=== PATIENT | male | born 1960 | race Caucasian/White ===

== ENCOUNTER 2019-12-04 12:08 | Inpatient (IN) ==
[2019-12-04] MEDS ORDERED: ACETAMINOPHEN 500 MG TAB PO STA (13:19)
[2019-12-04] MEDS ORDERED: methylPREDNISolone 125 MG/2 ML VIAL IV STA (13:35)
[2019-12-04] MEDS ORDERED: ACETAMINOPHEN 325 MG TAB PO STA (13:35)
[2019-12-04] MEDS ORDERED: LEVALBUTEROL HCL 1.25 MG/3 ML NEB NEB STA ×2 (13:35→15:47)
--- NOTE | 2019-12-04 13:43 | XRay Report ---
XR chest 1V portable CLINICAL HISTORY: 59 years-old Male presenting with SOB. TECHNIQUE: Portable upright AP view of the chest was obtained. COMPARISON: 06/05/2019. FINDINGS: Cardiomediastinal silhouette normal. Lungs and pleural spaces clear. Degenerative changes of the thor acic spine. Upper abdomen normal. IMPRESSION: 1. No acute cardiopulmonary disease. ACT 112: Negative or not required by law. Electronically signed by: Garfield Merida M.D. 12/04/2019 1:42 PM
[2019-12-04] MEDS ORDERED: SODIUM CHLORIDE 0.9% 1000ML 2,000 ML IV SCH (13:45)
[2019-12-04 14:28] LABS: Basophils # (auto) 0.02 K/uL (0-0.2); Basophils % (auto) 0.3 %; Hematocrit (blood only) 36.1 % (42-52); Hemoglobin 12.3 g/dL (14.0-18.0); Immature Granulocytes # (auto) 0.01 K/uL (0.00-0.02); Immature Granulocytes % (auto) 0.1 %; Lymphocytes # (auto) 1.06 K/uL (1.2-3.4); Lymphocytes % (auto) 14.1 %; Mean Corpuscular Hemoglobin 32.4 pg (25-34); Mean Corpuscular Hgb Conc 34.1 g/dL (32-36); Mean Platelet Volume 8.6 fL (7.4-10.4); Monocytes # (auto) 0.29 K/uL (0.11-0.59); Monocytes % (auto) 3.9 %; Neutrophils # (auto) 6.14 K/uL (1.4-6.5); Neutrophils % (auto) 81.6 %; Platelet Count 222 K/uL (130-400); White Blood Count 7.52 K/uL (4.8-10.8)
[2019-12-04 14:45] LABS: Alanine Aminotransferase 18 U/L (12-78); Albumin Level 3.6 gm/dl (3.4-5.0); Aspartate Aminotransferase 10 U/L (15-37); BUN Creatinine Ratio 9.9 (10-20); Blood Urea Nitrogen 13 mg/dl (7-18); Carbon Dioxide 24 mmol/L (21-32); Chloride 104 mmol/L (98-107); Creatinine Clr Calc Pharmacy 64.2 ml/min; Est GFR (African American) 65.1; Est GFR (Non-African American) 56.2; Glucose 164 mg/dl (70-99); Potassium 4.4 mmol/L (3.5-5.1); Sodium 136 mmol/L (136-145)
[2019-12-04 14:46] LABS: Partial Thromboplastin Ratio 0.9; Partial Thromboplastin Time 24.2 Seconds (21.0-31.0)
[2019-12-04 14:56] LABS: Albumin Globulin Ratio 1.3 (0.9-2); Alkaline Phosphatase 77 U/L (45-117); Bilirubin,Total 0.5 mg/dl (0.2-1); Globulin 2.7 gm/dl (2.5-4.0); Thyroid Stimulating Hormone 0.376 uIu/ml (0.300-4.500); Total Protein 6.3 gm/dl (6.4-8.2); Troponin I < 0.015 ng/ml (0-0.045)
[2019-12-04 14:59] LABS: Influenza B virus by PCR Neg for Influ B (Neg)
[2019-12-04] MEDS ORDERED: OSELTAMIVIR PHOSPHATE 75 MG CAP PO STA (15:10)
[2019-12-04] MEDS ORDERED: SODIUM CHLORIDE 0.9% 1000ML 1,000 ML IV ONE (15:47)
--- NOTE | 2019-12-04 16:43 | Electrocardiogram Report ---
Test Reason : Blood Pressure : / mmHG Vent. Rate : 127 BPM Atrial Rate : 127 BPM P-R Int : 130 ms QRS Dur : 130 ms QT Int : 336 ms P-R-T Axes : 060 086 052 degrees QTc Int : 488 ms Sinus tachycardia Right bundle branch block Abnormal ECG When compared with ECG of 05-JUN-2019 13:43, No significant change was found Confirmed by Martin Anne ([id number]) on 12/04/2019 4:42:35 PM Referred By: Socrates Cash Confirmed By:Martin Anne
--- NOTE | 2019-12-04 17:49 | History & Physical Report ---
Date of Service December 04, 2019 Assessment & Plan (1) Acute respiratory failure: Admit to PCU on telemetry, Vital signs every 4 hours, Replenish fluids and electrolytes, Follow-up with CBC and CMP, Repeat lactic acid. First lactic acid elevated to 3.5, Started ceftriaxone empirically in the ER 2 g IV every 24 hours and doxycycline 100 mg IV twice daily for possible pneumonia. Blood cultures pending Sputum cultures pending Continue home meds inhalers Umeclidinium/Vilanterol in 62.51 puff inhalation every morning, Ipratropium albuterol 1 puff every 6 hours as needed, Xopenex/ipratropium every 6 hours nebs Solu-Medrol 40 mg IV every 12 hours and taper down DVT prophylaxis Heparin 5000 units subcu every 12 hours. Full code Present on Admission?: Yes (2) Sepsis associated hypotension: As discussed above Present on Admission?: Yes (3) Influenza: Started oseltamivir 75 mg twice daily for 5 days Present on Admission?: Yes (4) Acute dehydration: Replenish fluids IV Present on Admission?: Yes (5) Hypertension: Hold antihypertensives while patient is hypotensive. Hold lisinopril 5 mg p.o. every morning (6) COPD (chronic obstructive pulmonary disease): As discussed above Present on Admission?: Yes (7) Hyperlipidemia: Lipid panel pending continue simvastatin 20 mg p.o. nightly. Present on Admission?: Yes History of Present Illness Chief Complaint: Shortness of breath Primary Care Provider: Nimesh Levy, DO The patient is a 59 years old male with past medical history of COPD who presents to the emergency room with severe shortness of breath, dyspnea started yesterday. The patient states that his symptoms are not relieved nor exacerbated by anything specific. Patient reports feeling very tired. Patient reports having a fever, chills, cough nonproductive, headache and body aches. Patient denies abdominal pain nausea vomiting hematuria hematemesis or syncope. Patient is smoker for many years and smokes half a pack per day. The labs are reviewed: WBC 7.52, hemoglobin 12.3, hematocrit 36.1, platelets 222, PT 10, INR 1, APTT 24.2 sodium 136, potassium 4.4, chloride 104, carbon dioxide 24, anion gap 9, BUN 13, creatinine 1.36, GFR 56.2, glucose 164, lactate 3.5, repeated lactate pending, calcium 9, total bilirubin 0.5, AST 10, ALT 18, alkaline phosphatase 77, troponin 0.015, total protein 6.3, albumin 3.6, globulin 2.7, TSH is 0.376. Patient is positive for influenza A. Influenza B is negative. Chest x-ray show cardiomediastinal silhouette normal. Lungs and pleural spaces clear. Degenerative changes of the thoracic spine. Upper abdomen is normal. No acute cardiopulmonary disease. Decision was made to admit patient to PCU on telemetry for acute respiratory failure, influenza A, and generalized malaise with body aches. Allergies Allergy/AdvReac Type Severity Reaction Status Date / Time No Known Allergies Allergy Unknown Verified 12/04/19 15:27 Home Medications Home Medications Medication Instructions Recorded Confirmed Type albuterol sulfate [ProAir HFA] 2 puff INHALATION DIRECTED PRN 07/12/18 12/04/19 History aspirin [Aspir-81] 81 mg PO QAM 07/12/18 12/04/19 History glyburide 5 mg PO BID 07/12/18 12/04/19 History liraglutide [Victoza 2-[place]] 1 dose SUBCUT QAM 07/12/18 12/04/19 History lisinopril 5 mg PO QAM 07/12/18 12/04/19 History metformin 1,000 mg PO BID 07/12/18 12/04/19 History simvastatin 20 mg PO HS 07/12/18 12/04/19 History tiotropium-olodaterol [Stiolto 2 puff INHALATION QAM 07/12/18 12/04/19 History Respimat] ipratropium-albuterol [Combivent 1 puff INHALATION Q6H PRN 06/05/19 12/04/19 History Respimat] Past Med/Surg History Medical History COPD (chronic obstructive pulmonary disease) Surgical History No pertinent past surgical history Family History Other No pertinent family history in first degree relatives Social History Preferred Language: [place] Communication Ability: Effective Beliefs That Will Affect Care: None Current Living Situation: Spouse Other Information That Helps Us Care for You: No Feels Safe at Home: Yes Smoking Status: Current every day smoker Tobacco Type: cigarettes and e- cigarettes ; Do You Dip or Chew Tobacco: No ; Second Hand Exposure: No ; Tobacco Cessation Education Requested by Patient: No Hx Alcohol Use: Yes Alcohol type: beer Review of Systems Review of Systems: All systems reviewed & are unremarkable except as noted in HPI & below Physical Exam Constitutional: WD/WN, vitals as above well developed, + ill appearing and + obese Eyes: PERRL, conjunctivae normal, anicteric sclerae ENMT: external ear and nose normal, oropharynx normal Nose: + nasal discharge Runny nose, erythematosus pharynx, appears very tired. Neck: trachea midline, no thyromegaly Respiratory: Auscultation: + wheezes Cardiovascular: RRR, no murmur, no edema Gastrointestinal (Abdomen): normal bowel sounds, soft, nontender, no hepatosplenomegaly Musculoskeletal: no cyanosis or clubbing, extremities motor strength 5/5 Skin: no rashes, warm and dry Neurologic: patellar DTR's 2+ bilat, sensation intact Psychiatric: A+Ox3, euthymic affect Lymphatic: no cervical or axillary lymphadenopathy Results & Data Vital Signs (Past 12 Hours) Vital Signs Temp Pulse Pulse Resp BP BP Pulse Ox 12/04/19 17:31 122 H 20 96 12/04/19 17:30 122 H 23 125/64 98 12/04/19 17:15 117 H 22 96 12/04/19 17:02 116 H 26 H 97 12/04/19 17:01 117 H 117 H 26 H 101/61 101/61 97 12/04/19 16:45 120 H 29 H 96 12/04/19 16:34 53 L 19 168/64 H 99 12/04/19 16:30 120 H 21 112/77 98 12/04/19 16:26 120 H 20 97 12/04/19 16:20 121 H 19 110/58 L 96 12/04/19 16:15 124 H 16 12/04/19 16:01 128 H 26 H 12/04/19 16:00 125 H 23 90/58 L 12/04/19 15:45 131 H 15 12/04/19 15:31 128 H 32 H 94 12/04/19 15:30 132 H 31 H 110/62 90 12/04/19 15:15 136 H 23 93 12/04/19 15:01 135 H 29 H 96 12/04/19 15:00 132 H 25 H 109/67 95 12/04/19 14:45 132 H 22 92 12/04/19 14:41 129 H 23 112/64 95 12/04/19 14:37 38.1 C H 130 H 24 112/64 88 L 12/04/19 14:30 133 H 30 H 94 12/04/19 14:22 90 12/04/19 14:15 128 H 21 12/04/19 14:01 132 H 26 H 91 12/04/19 13:57 130 H 33 H 93 12/04/19 13:54 131 H 30 H 105/56 L 95 12/04/19 13:53 129 H 26 H 93 12/04/19 12:37 38.1 C H 144 H 22 104/63 93 Code Status & VTE Plan Code Status Full code VTE Prophylaxis Plan VTE Prophylaxis will be ordered: Yes PG Care Time/CCT Total # of Minutes Spent Total Time Spent with Patient: Total time spent is greater than 50% in coordination of care (as documented) at patient's floor/unit and/or counseling patient: Coding Level of Care Code 82883 Initial Inpt Care Lvl 3 Diagnoses Acute respiratory failure J96.00 Sepsis associated hypotension A41.9; I95.9 Influenza J11.1 Acute dehydration E86.0 Hypertension I10 COPD (chronic obstructive pulmonary disease) J44.9 Hyperlipidemia E78.5
[2019-12-04] MEDS ORDERED: MAGNESIUM HYDROXIDE SUSP 30 ML UDC PO PRN (18:21)
[2019-12-04] MEDS ORDERED: ACETAMINOPHEN 325 MG TAB PO PRN (18:21)
[2019-12-04] MEDS ORDERED: NON-FORMULARY MEDICATION (Albuterol Sulfate 2 PUFFS) INH PRN (18:21)
[2019-12-04] MEDS ORDERED: ALUMINUM/MAGNESIUM SUSP 30 ML UDC PO PRN (18:21)
[2019-12-04] MEDS ORDERED: SODIUM CHLORIDE 0.9% 1000ML 1,000 ML IV SCH (18:21)
[2019-12-04] MEDS ORDERED: POLYETHYLENE (MIRALAX) 17 GM PACK PO PRN (18:21)
[2019-12-04] MEDS ORDERED: IPRATROPIUM BROMIDE/ALBUTEROL respimat INH INH PRN (18:21)
[2019-12-04] MEDS ORDERED: ONDANSETRON INJ 2 MG/ML 2 ML VIAL IV PRN (18:21)
[2019-12-04] MEDS ORDERED: XOPENEX/ATROVENT 0.63mg/0.5MG NEB COMBO NEB SCH (19:00)
[2019-12-04] MEDS ORDERED: cefTRIAXone SODIUM 2,000 MG in DEXTROSE 5% 50 ML IV SCH (19:00)
[2019-12-04] MEDS: DOXYCYCLINE HYCLATE 100 MG in DEXTROSE 5% 100 ML IV SCH (20:00)
--- NOTE | 2019-12-04 20:06 | Emergency Department Note ---
Entered by Celeste Rosas acting as a scribe for History of Present Illness General Chief complaint: Respiratory Problems Stated complaint: SORE [id number]-HARD TO BREATH Time Seen by Provider: 12/04/19 13:20 Source: patient History of Present Illness Provider complaint: Shortness of Breath/Dyspnea Onset (ago): day(s) 1 Location: chest Maximum Pain Intensity: 6 Relieved By: + none Exacerbated By: + none Associated symptoms: + cough, + fever/chills, + headaches and + other (Body aches); no nausea/vomiting The patient is a 59 year old male w/ PMHx of COPD who presents to the ED w/ CC of shortness of breath/dyspnea beginning yesterday. The patient states that his symptoms are not relieved nor exacerbated by anything specific. The patient report experiencing a cough, fever/chills, headache, and body aches. The patient denies experiencing any nausea/vomiting. The patient also denies any recent travels or contact with sick persons. The patient notes that he has COPD and smokes. Home Medications Home Medications Medication Instructions Recorded Confirmed Type albuterol sulfate [ProAir HFA] 2 puff INHALATION DIRECTED PRN 07/12/18 12/04/19 History aspirin [Aspir-81] 81 mg PO QAM 07/12/18 12/04/19 History glyburide 5 mg PO BID 07/12/18 12/04/19 History liraglutide [Victoza 2-[place]] 1 dose SUBCUT QAM 07/12/18 12/04/19 History lisinopril 5 mg PO QAM 07/12/18 12/04/19 History metformin 1,000 mg PO BID 07/12/18 12/04/19 History simvastatin 20 mg PO HS 07/12/18 12/04/19 History tiotropium-olodaterol [Stiolto 2 puff INHALATION QAM 07/12/18 12/04/19 History Respimat] ipratropium-albuterol [Combivent 1 puff INHALATION Q6H PRN 06/05/19 12/04/19 History Respimat] Allergies Allergy/AdvReac Type Severity Reaction Status Date / Time No Known Allergies Allergy Unknown Verified 12/04/19 15:27 Past Med/Surg History Medical History COPD (chronic obstructive pulmonary disease) Surgical History No pertinent past surgical history Family History Other No pertinent family history in first degree relatives Social History Preferred Language: Norwegian Communication Ability: Effective Beliefs That Will Affect Care: None Current Living Situation: Spouse Other Information That Helps Us Care for You: No Feels Safe at Home: Yes Smoking Status: Current every day smoker Tobacco Type: cigarettes and e- cigarettes ; Do You Dip or Chew Tobacco: No ; Second Hand Exposure: No ; Tobacco Cessation Education Requested by Patient: No Hx Alcohol Use: Yes Alcohol type: beer Review of Systems See HPI for pertinent positives & negatives. and A total of 10 systems reviewed and were otherwise negative Physical Exam Vital Signs Vital Signs - 24 hr 12/04/19 12:37 12/04/19 13:53 12/04/19 13:54 Temperature 38.1 C H Temperature Source Oral Pulse Rate 144 H 131 H Pulse Rate [Right Finger] 129 H Pulse Rate from SpO2 Sensor 131 H Pulse Rhythm [Right Finger] Pulse Strength [Right Finger] Respiratory Rate 22 26 H 30 H Respiratory Effort / Characteristics Non-Labored Spontaneous Respiratory Depth Normal Respiratory Pattern Blood Pressure 104/63 105/56 L Blood Pressure [Left Arm] Blood Pressure Mean 76 64 Blood Pressure Mean [Left Arm] Blood Pressure Position Sitting Blood Pressure Position [Left Arm] Pulse Oximetry 93 93 95 Oxygen Delivery Method Room Air Room Air Oxygen Flow Rate Sepsis Recent Fever Within 48 Hours Yes Sepsis New/Unexplained Change in Mental Status No Sepsis Action Taken by Nursing Physician Notified 12/04/19 13:57 12/04/19 14:01 12/04/19 14:15 Temperature Temperature Source Pulse Rate 130 H 132 H 128 H Pulse Rate [Right Finger] Pulse Rate from SpO2 Sensor 129 H 132 H Pulse Rhythm [Right Finger] Pulse Strength [Right Finger] Respiratory Rate 33 H 26 H 21 Respiratory Effort / Characteristics Respiratory Depth Respiratory Pattern Blood Pressure Blood Pressure [Left Arm] Blood Pressure Mean Blood Pressure Mean [Left Arm] Blood Pressure Position Blood Pressure Position [Left Arm] Pulse Oximetry 93 91 Oxygen Delivery Method Oxygen Flow Rate Sepsis Recent Fever Within 48 Hours Sepsis New/Unexplained Change in Mental Status Sepsis Action Taken by Nursing 12/04/19 14:22 12/04/19 14:30 12/04/19 14:37 Temperature 38.1 C H Temperature Source Oral Pulse Rate 133 H Pulse Rate [Right Finger] 130 H Pulse Rate from SpO2 Sensor 133 H Pulse Rhythm [Right Finger] Regular Pulse Strength [Right Finger] Normal Respiratory Rate 30 H 24 Respiratory Effort / Characteristics Non-Labored Spontaneous Respiratory Depth Normal Respiratory Pattern Regular Blood Pressure Blood Pressure [Left Arm] 112/64 Blood Pressure Mean Blood Pressure Mean [Left Arm] 80 Blood Pressure Position Blood Pressure Position [Left Arm] Sitting Pulse Oximetry 90 94 88 L Oxygen Delivery Method Room Air Room Air Oxygen Flow Rate Sepsis Recent Fever Within 48 Hours Sepsis New/Unexplained Change in Mental Status Sepsis Action Taken by Nursing 12/04/19 14:41 12/04/19 14:45 12/04/19 15:00 Temperature Temperature Source Pulse Rate 129 H 132 H 132 H Pulse Rate [Right Finger] Pulse Rate from SpO2 Sensor 130 H 130 H 132 H Pulse Rhythm [Right Finger] Pulse Strength [Right Finger] Respiratory Rate 23 22 25 H Respiratory Effort / Characteristics Respiratory Depth Respiratory Pattern Blood Pressure 112/64 109/67 Blood Pressure [Left Arm] Blood Pressure Mean 84 74 Blood Pressure Mean [Left Arm] Blood Pressure Position Blood Pressure Position [Left Arm] Pulse Oximetry 95 92 95 Oxygen Delivery Method Oxygen Flow Rate Sepsis Recent Fever Within 48 Hours Sepsis New/Unexplained Change in Mental Status Sepsis Action Taken by Nursing 12/04/19 15:01 12/04/19 15:15 12/04/19 15:30 Temperature Temperature Source Pulse Rate 135 H 136 H 132 H Pulse Rate [Right Finger] Pulse Rate from SpO2 Sensor 134 H 137 H 132 H Pulse Rhythm [Right Finger] Pulse Strength [Right Finger] Respiratory Rate 29 H 23 31 H Respiratory Effort / Characteristics Respiratory Depth Respiratory Pattern Blood Pressure 110/62 Blood Pressure [Left Arm] Blood Pressure Mean 72 Blood Pressure Mean [Left Arm] Blood Pressure Position Blood Pressure Position [Left Arm] Pulse Oximetry 96 93 90 Oxygen Delivery Method Oxygen Flow Rate Sepsis Recent Fever Within 48 Hours Sepsis New/Unexplained Change in Mental Status Sepsis Action Taken by Nursing 12/04/19 15:31 12/04/19 15:45 12/04/19 16:00 Temperature Temperature Source Pulse Rate 128 H 131 H 125 H Pulse Rate [Right Finger] Pulse Rate from SpO2 Sensor 129 H Pulse Rhythm [Right Finger] Pulse Strength [Right Finger] Respiratory Rate 32 H 15 23 Respiratory Effort / Characteristics Respiratory Depth Respiratory Pattern Blood Pressure 90/58 L Blood Pressure [Left Arm] Blood Pressure Mean 74 Blood Pressure Mean [Left Arm] Blood Pressure Position Blood Pressure Position [Left Arm] Pulse Oximetry 94 Oxygen Delivery Method Oxygen Flow Rate Sepsis Recent Fever Within 48 Hours Sepsis New/Unexplained Change in Mental Status Sepsis Action Taken by Nursing 12/04/19 16:01 12/04/19 16:15 12/04/19 16:20 Temperature Temperature Source Pulse Rate 128 H 124 H 121 H Pulse Rate [Right Finger] Pulse Rate from SpO2 Sensor 121 H Pulse Rhythm [Right Finger] Pulse Strength [Right Finger] Respiratory Rate 26 H 16 19 Respiratory Effort / Characteristics Respiratory Depth Respiratory Pattern Blood Pressure 110/58 L Blood Pressure [Left Arm] Blood Pressure Mean 65 Blood Pressure Mean [Left Arm] Blood Pressure Position Blood Pressure Position [Left Arm] Pulse Oximetry 96 Oxygen Delivery Method Oxygen Flow Rate Sepsis Recent Fever Within 48 Hours Sepsis New/Unexplained Change in Mental Status Sepsis Action Taken by Nursing 12/04/19 16:26 12/04/19 16:30 12/04/19 16:34 Temperature Temperature Source Pulse Rate 120 H 53 L Pulse Rate [Right Finger] 120 H Pulse Rate from SpO2 Sensor 120 H 55 L Pulse Rhythm [Right Finger] Pulse Strength [Right Finger] Respiratory Rate 20 21 19 Respiratory Effort / Characteristics Spontaneous Respiratory Depth Respiratory Pattern Blood Pressure 112/77 168/64 H Blood Pressure [Left Arm] Blood Pressure Mean 83 105 Blood Pressure Mean [Left Arm] Blood Pressure Position Blood Pressure Position [Left Arm] Pulse Oximetry 97 98 99 Oxygen Delivery Method Oxymask Oxygen Flow Rate 4.5 Sepsis Recent Fever Within 48 Hours Sepsis New/Unexplained Change in Mental Status Sepsis Action Taken by Nursing 12/04/19 16:45 12/04/19 17:01 12/04/19 17:02 Temperature Temperature Source Pulse Rate 120 H 117 H 116 H Pulse Rate [Right Finger] 117 H Pulse Rate from SpO2 Sensor 121 H 118 H 117 H Pulse Rhythm [Right Finger] Pulse Strength [Right Finger] Respiratory Rate 29 H 26 H 26 H Respiratory Effort / Characteristics Respiratory Depth Respiratory Pattern Blood Pressure 101/61 Blood Pressure [Left Arm] 101/61 Blood Pressure Mean 71 Blood Pressure Mean [Left Arm] 74 Blood Pressure Position Blood Pressure Position [Left Arm] Pulse Oximetry 96 97 97 Oxygen Delivery Method Oxygen Flow Rate Sepsis Recent Fever Within 48 Hours Sepsis New/Unexplained Change in Mental Status Sepsis Action Taken by Nursing 12/04/19 17:15 12/04/19 17:30 12/04/19 17:31 Temperature 37.2 C Temperature Source Oral Pulse Rate 117 H 122 H 122 H Pulse Rate [Right Finger] Pulse Rate from SpO2 Sensor 117 H 122 H 123 H Pulse Rhythm [Right Finger] Pulse Strength [Right Finger] Respiratory Rate 22 23 20 Respiratory Effort / Characteristics Respiratory Depth Respiratory Pattern Blood Pressure 125/64 Blood Pressure [Left Arm] Blood Pressure Mean 79 Blood Pressure Mean [Left Arm] Blood Pressure Position Blood Pressure Position [Left Arm] Pulse Oximetry 96 98 96 Oxygen Delivery Method Oxygen Flow Rate Sepsis Recent Fever Within 48 Hours Sepsis New/Unexplained Change in Mental Status Sepsis Action Taken by Nursing 12/04/19 17:45 Temperature Temperature Source Pulse Rate 113 H Pulse Rate [Right Finger] Pulse Rate from SpO2 Sensor Pulse Rhythm [Right Finger] Pulse Strength [Right Finger] Respiratory Rate 18 Respiratory Effort / Characteristics Respiratory Depth Respiratory Pattern Blood Pressure Blood Pressure [Left Arm] Blood Pressure Mean Blood Pressure Mean [Left Arm] Blood Pressure Position Blood Pressure Position [Left Arm] Pulse Oximetry Oxygen Delivery Method Oxygen Flow Rate Sepsis Recent Fever Within 48 Hours Sepsis New/Unexplained Change in Mental Status Sepsis Action Taken by Nursing GENERAL: Well nourished, NAD, non-toxic. EYE EXAM: Normal conjunctiva. PERRL, no anisocoria and EOM's grossly intact w/o pain. OROPHARYNX: Dry mucous membranes. Grossly normal dentition. NECK: Supple, no nuchal rigidity, no adenopathy, non-tender. No signs of meningismus. LUNGS: Scant wheezes left chest. Normal chest wall mechanics. HEART: Tachycardic rate and regular rhythm, no MRG. ABDOMEN: Abdomen soft, non-tender, normo-active bowel sounds, no masses, no rebound or guarding. BACK: No CVA TTP. SKIN: No rashes and no bruising. UPPER EXTREMITIES: Upper extremities are grossly normal. LOWER EXTREMITIES: No pitting edema. No calf pain. NEURO EXAM: A&O x3, cranial nerves II-XII grossly intact, normal speech, moves all 4 extremities on command w/o issue. Course Course 1330: Past medical records reviewed. The patient was evaluated in room B05. A complete history and physical exam was performed. 1531: I reevaluated the patient and he is requiring oxygen at this time. 1547: I spoke with Dr. Kate- Hospitalist about the patient's case and she will accept the patient for further evaluation. Administered Medications Doxycycline Hyclate 100 mg/ (Dextrose) 110 mls @ 50 mls/hr IV Q12H MARCIO Stop: 12/11/19 19:59 Last Admin: 12/04/19 20:00 Dose: 50 mls/hr Documented by: [id number] Ceftriaxone Sodium 2,000 mg/ (Dextrose) 70 mls @ 100 mls/hr IV Q24H MARCIO; Protocol Stop: 12/11/19 18:59 Last Admin: 12/04/19 19:55 Dose: 100 mls/hr Documented by: [id number] Sodium Chloride (Nss 1000ml) 1,000 mls @ 80 mls/hr IV .[id number] MARCIO Stop: 01/03/20 18:20 Last Admin: 12/04/19 19:55 Dose: 80 mls/hr Documented by: [id number] Discontinued Medications Acetaminophen (Tylenol) 1,000 mg PO NOW STA Stop: 12/04/19 13:20 Last Admin: 12/04/19 14:27 Dose: 1,000 mg Documented by: [id number] Acetaminophen (Tylenol) 650 mg PO NOW STA Stop: 12/04/19 13:36 Last Admin: 12/04/19 14:27 Dose: Not Given Documented by: [id number] Sodium Chloride (Nss 1000ml) 2,000 mls @ 999 mls/hr IV .Q2H1M MARCIO Stop: 12/04/19 15:45 Last Infusion: 12/04/19 16:25 Dose: 0 mls/hr Documented by: [id number] Admin: 12/04/19 14:26 Dose: 999 mls/hr Documented by: [id number] Sodium Chloride (Nss 1000ml) 1,000 mls @ 999 mls/hr IV .Q1H1M ONE Stop: 12/04/19 16:47 Last Infusion: 12/04/19 17:36 Dose: 0 mls/hr Documented by: [id number] Admin: 12/04/19 16:21 Dose: 999 mls/hr Documented by: [id number] Levalbuterol HCl (Xopenex 1.25mg/3ml Neb) 1.25 mg NEB NOW STA Stop: 12/04/19 13:36 Last Admin: 12/04/19 13:53 Dose: 1.25 mg Documented by: [id number] Levalbuterol HCl (Xopenex 1.25mg/3ml Neb) 1.25 mg NEB NOW STA Stop: 12/04/19 15:48 Last Admin: 12/04/19 16:26 Dose: 1.25 mg Documented by: [id number] Methylprednisolone (Solumedrol) 60 mg IV NOW STA Stop: 12/04/19 13:36 Last Admin: 12/04/19 14:26 Dose: 60 mg Documented by: [id number] Oseltamivir Phosphate (Tamiflu) 75 mg PO NOW STA; Protocol Stop: 12/04/19 15:11 Last Admin: 12/04/19 15:17 Dose: 75 mg Documented by: [id number] Medical Decision Making Differential Diagnosis Differential diagnosis: Etiologies such as viral syndrome, otitis, pharyngitis, pneumonia, influenza, meningitis, urinary tract infection, septic arthritis, soft tissue infectious process, intra-abdominal process, sepsis, bacteremia, as well as others were entertained. Medical Records Attestation: I reviewed the patient's medical records. Home Medications Current Medication List: was personally reviewed by me Laboratory Data Attestation: I reviewed the patient's lab results. Result diagrams: 12/04/19 14:14 12/04/19 14:14 Lab Results 12/04/19 12/04/19 12/04/19 Range/Units 14:00 14:14 14:14 WBC 7.52 (4.8-10.8) K/uL RBC 3.80 L (4.7-6.1) M/uL Hgb 12.3 L (14.0-18.0) g/dL Hct 36.1 L (42-52) % MCV 95.0 (80-100) fL MCH 32.4 (25-34) pg MCHC 34.1 (32-36) g/dL RDW Std Deviation 48.0 H (36.4-46.3) fL RDW Coeff of Gavin 14.0 (11.5-14.5) % Plt Count 222 (130-400) K/uL MPV 8.6 (7.4-10.4) fL Immature Gran % (Auto) 0.1 % Neut % (Auto) 81.6 % Lymph % (Auto) 14.1 % [place] % (Auto) 3.9 % Eos % (Auto) 0.0 % Baso % (Auto) 0.3 % Immature Gran # (Auto) 0.01 (0.00-0.02) K/uL Neut # (Auto) 6.14 (1.4-6.5) K/uL Lymph # (Auto) 1.06 L (1.2-3.4) K/uL [place] # (Auto) 0.29 (0.11-0.59) K/uL Eos # (Auto) 0.00 (0-0.5) K/uL Baso # (Auto) 0.02 (0-0.2) K/uL PT 10.0 (9.0-12.0) Seconds INR 1.0 (0.9-1.1) APTT 24.2 (21.0-31.0) Seconds PTT Ratio 0.9 Sodium (136-145) mmol/L Potassium (3.5-5.1) mmol/L Chloride (98-107) mmol/L Carbon Dioxide (21-32) mmol/L Anion Gap (3-11) BUN (7-18) mg/dl Creatinine (0.6-1.4) mg/dl Est Cr Clr Drug Dosing ml/min Est GFR ( Amer) Est GFR (Non-Af Amer) BUN/Creatinine Ratio (10-20) Glucose (70-99) mg/dl Lactate (0.4-2.0) mmol/L Calcium (8.5-10.1) mg/dl Total Bilirubin (0.2-1) mg/dl AST (15-37) U/L ALT (12-78) U/L Alkaline Phosphatase (45-117) U/L Troponin I (0-0.045) ng/ml Total Protein (6.4-8.2) gm/dl Albumin (3.4-5.0) gm/dl Globulin (2.5-4.0) gm/dl Albumin/Globulin Ratio (0.9-2) TSH (0.300-4.500) uIu/ml Influenza Type A (PCR) Pos for Influ A A* (Neg) Influenza Type B (PCR) Neg for Influ B (Neg) 03/03/20 03/03/20 Range/Units 14:14 14:14 WBC (4.8-10.8) K/uL RBC (4.7-6.1) M/uL Hgb (14.0-18.0) g/dL Hct (42-52) % MCV (80-100) fL MCH (25-34) pg MCHC (32-36) g/dL RDW Std Deviation (36.4-46.3) fL RDW Coeff of Gavin (11.5-14.5) % Plt Count (130-400) K/uL MPV (7.4-10.4) fL Immature Gran % (Auto) % Neut % (Auto) % Lymph % (Auto) % [place] % (Auto) % Eos % (Auto) % Baso % (Auto) % Immature Gran # (Auto) (0.00-0.02) K/uL Neut # (Auto) (1.4-6.5) K/uL Lymph # (Auto) (1.2-3.4) K/uL [place] # (Auto) (0.11-0.59) K/uL Eos # (Auto) (0-0.5) K/uL Baso # (Auto) (0-0.2) K/uL PT (9.0-12.0) Seconds INR (0.9-1.1) APTT (21.0-31.0) Seconds PTT Ratio Sodium 136 (136-145) mmol/L Potassium 4.4 (3.5-5.1) mmol/L Chloride 104 (98-107) mmol/L Carbon Dioxide 24 (21-32) mmol/L Anion Gap 9.0 (3-11) BUN 13 (7-18) mg/dl Creatinine 1.36 (0.6-1.4) mg/dl Est Cr Clr Drug Dosing 64.2 ml/min Est GFR ( Amer) 65.1 Est GFR (Non-Af Amer) 56.2 BUN/Creatinine Ratio 9.9 L (10-20) Glucose 164 H (70-99) mg/dl Lactate 3.5 H* (0.4-2.0) mmol/L Calcium 9.0 (8.5-10.1) mg/dl Total Bilirubin 0.5 (0.2-1) mg/dl AST 10 L (15-37) U/L ALT 18 (12-78) U/L Alkaline Phosphatase 77 (45-117) U/L Troponin I < 0.015 (0-0.045) ng/ml Total Protein 6.3 L (6.4-8.2) gm/dl Albumin 3.6 (3.4-5.0) gm/dl Globulin 2.7 (2.5-4.0) gm/dl Albumin/Globulin Ratio 1.3 (0.9-2) TSH 0.376 (0.300-4.500) uIu/ml Influenza Type A (PCR) (Neg) Influenza Type B (PCR) (Neg) Imaging Data Radiologist's Impression: Radiology results as stated below per my review and the radiologist's interpretation: XR chest 1V portable CLINICAL HISTORY: 59 years-old Male presenting with SOB. TECHNIQUE: Portable upright AP view of the chest was obtained. COMPARISON: 06/05/2019. FINDINGS: Cardiomediastinal silhouette normal. Lungs and pleural spaces clear. Degenerative changes of the thoracic spine. Upper abdomen normal. IMPRESSION: 1. No acute cardiopulmonary disease. ACT 112: Negative or not required by law. Electronically signed by: Garfield Merida M.D. 12/04/2019 1:42 PM ECG Data Attestation: I personally reviewed and interpreted this ECG as follows: Indication: + SOB/dyspnea Rate (beats per minute): 127 Rhythm: + sinus tachycardia ECG Intervals/blocks: + Right Bundle branch block; no Normal QRS (Wide QRS) ECG ST segments: no ST depression and no ST elevation Comparison ECG Date: from (06/05/19) Change: no significant change Blood Pressure Blood Pressure Findings: Normal blood pressure Blood Pressure Disposition: further management by hospitalist SHAKIRA Narrative The patient is a 59 year old male w/ PMHx of COPD who presents to the ED w/ CC of shortness of breath/dyspnea beginning yesterday. Continuous Cardiac Monitoring: An order was placed for continuous cardiac monit oring. The monitor shows a rate of 127 with sinus tachycardia. Patient was seen and evaluated the bedside. The patient did present with concern for flulike symptoms that began yesterday. The patient does have a known history of COPD and does feel short of breath. The patient did have blood work completed along with a flu swab and chest x-ray. The patient was given Xopenex nebs steroids and fluids. Patient has a normal white counts trace low anemia. The patient does have normal kidney function with an elevated lactic. The patient's flu was positive was given Tamiflu. Chest x-ray appears clear. The patient has not had a complaint of increased sputum production or white count. Will defer antibiotics at this time. Given that the patient does have a mild oxygen requirement with his flulike illness I believe the patient would benefit from further inpatient treatment specially given his elevated lactate. I did speak the on-call hospitalist who agreed to further evaluate treat the patient. Patient was subsequently mated to the medicine service. Impression & Plan Respiratory failure with hypoxia, Influenza, Acute dehydration, SOB (shortness of breath), Elevated lactic acid level Discharge Plan Visit Data *Final* Discharge Date/Time: 12/04/19 18:10 Chief Complaint: Respiratory Problems Stated Complaint: SORE [id number]-[id number]-HARD TO BREATH ED Provider: Socrates Cash Discharge Problem: Respiratory failure with hypoxia, Influenza, Acute dehydration, SOB (shortness of breath), Elevated lactic acid level Patient Disposition: Admitted As Inpatient Discharge Instructions Interventions: ED Discharge Assessment Last Done: 12/04/19 18:10 Discharge Problem: Respiratory failure with hypoxia Qualifiers: Chronicity: unspecified Qualified Code(s): J96.91 - Respiratory failure, unspecified with hypoxia The scribe's documentation has been prepared under my direction and personally reviewed by me in its entirety. I confirm that the note above accurately reflects all work, treatment, procedures, and medical decision making performed by me.
[2019-12-04] MEDS ORDERED: GLUCOSE 10 TABS/TUBE PO PRN (20:30)
[2019-12-04] MEDS ORDERED: GLUCOSE 40% GEL 15 GM TUBE PO PRN (20:30)
[2019-12-04] MEDS ORDERED: CARBOHYDRATES FOR HYPOGLYCEMIA PO PRN (20:30)
[2019-12-04] MEDS ORDERED: DEXTROSE 50% 50 ML SYRINGE IV PRN (20:30)
[2019-12-04] MEDS ORDERED: GLUCAGON FOR INJ 1 MG VIAL SQ PRN (20:30)
[2019-12-04] MEDS: LEVALBUTEROL HCL 0.63 MG/3 ML NEB NEB SCH (20:55)
[2019-12-04] MEDS: IPRATROPIUM BROMIDE NEB SOLN 0.02% 2.5 ML VIAL INH SCH (20:55)
[2019-12-04] MEDS: SIMVASTATIN 20 MG TAB PO SCH (20:56)
[2019-12-04] MEDS: HEPARIN SOD 5,000 UNIT/0.5 ML VIAL SQ SCH (20:56)
[2019-12-04] MEDS ORDERED: INSULIN ASPART 100 UNITS/ML 3 ML PEN SC SCH (21:00)
[2019-12-04] MEDS ORDERED: INSULIN ASPART 100 UNITS/ML 3 ML PEN SC ONE (21:30)
[2019-12-05] MEDS ORDERED: PHARMACY GLYCEMIC MGMT CONSULT PRN (00:56)
[2019-12-05] MEDS: IPRATROPIUM BROMIDE NEB SOLN 0.02% 2.5 ML VIAL INH SCH ×4 (01:08→19:31)
[2019-12-05] MEDS: LEVALBUTEROL HCL 0.63 MG/3 ML NEB NEB SCH ×4 (01:08→19:31)
[2019-12-05] MEDS ORDERED: INSULIN REGULAR 250 UNITS in SODIUM CHLORIDE 0.9% 247.5 ML IV SCH (01:15)
[2019-12-05] MEDS ORDERED: INSULIN HUMAN REGULAR IV BOLUS 5 UNITS in SYRINGE 0 ML IV ONE (01:15)
[2019-12-05] MEDS ORDERED: methylPREDNISolone 40 MG in SYRINGE 0 ML IV SCH (02:00)
[2019-12-05] MEDS: NSS + 20MEQ KCL 20 MEQ/1,000 ML BAG IV SCH ×2 (02:36→13:56)
[2019-12-05] MEDS: OSELTAMIVIR PHOSPHATE 75 MG CAP PO SCH ×2 (05:59→17:50)
[2019-12-05 06:45] LABS: Basophils # (auto) 0.01 K/uL (0-0.2); Basophils % (auto) 0.1 %; Hematocrit (blood only) 36.2 % (42-52); Hemoglobin 12.1 g/dL (14.0-18.0); Immature Granulocytes # (auto) 0.03 K/uL (0.00-0.02); Immature Granulocytes % (auto) 0.4 %; Lymphocytes # (auto) 0.28 K/uL (1.2-3.4); Lymphocytes % (auto) 3.3 %; Mean Corpuscular Hemoglobin 32.4 pg (25-34); Mean Corpuscular Hgb Conc 33.4 g/dL (32-36); Mean Corpuscular Volume 96.8 fL (80-100); Mean Platelet Volume 8.6 fL (7.4-10.4); Monocytes # (auto) 0.59 K/uL (0.11-0.59); Neutrophils # (auto) 7.52 K/uL (1.4-6.5); Neutrophils % (auto) 89.2 %; Platelet Count 249 K/uL (130-400); RDW Coefficient of Variation 14.1 % (11.5-14.5); RDW Standard Deviation 50.2 fL (36.4-46.3); Red Blood Count 3.74 M/uL (4.7-6.1); White Blood Count 8.43 K/uL (4.8-10.8)
[2019-12-05 07:17] LABS: Albumin Level 3.3 gm/dl (3.4-5.0); BUN Creatinine Ratio 14.4 (10-20); Calcium 8.8 mg/dl (8.5-10.1); Est GFR (African American) 71.4; Est GFR (Non-African American) 61.6; Estimated Average Glucose 212 mg/dl; Potassium 4.1 mmol/L (3.5-5.1)
[2019-12-05 07:22] LABS: Bilirubin,Total 0.4 mg/dl (0.2-1); Globulin 3.2 gm/dl (2.5-4.0); Total Protein 6.5 gm/dl (6.4-8.2)
[2019-12-05] MEDS: INSULIN ASPART 100 UNITS/ML 3 ML PEN SC SCH ×4 (07:57→20:51)
[2019-12-05] MEDS: VICTOZA~ORDER AWAITING ACTION SCH ×3 (07:58→23:59)
[2019-12-05] MEDS: ASPIRIN 81 MG ECTAB PO SCH (07:59)
[2019-12-05] MEDS: UMECLIDINIUM/VILANTEROL 62.5/25MCG 7 PUFFS/INHALER INH SCH (07:59)
[2019-12-05] MEDS: NICOTINE 14 MG/24 HR PATCH TD SCH (07:59)
[2019-12-05] MEDS: HEPARIN SOD 5,000 UNIT/0.5 ML VIAL SQ SCH ×2 (08:00→20:50)
[2019-12-05] MEDS: DOXYCYCLINE HYCLATE 100 MG in DEXTROSE 5% 100 ML IV SCH (08:08)
[2019-12-05] MEDS ORDERED: lisinopriL 5 MG TAB PO SCH (09:00)
--- NOTE | 2019-12-05 09:19 | Hospitalist Progress Note ---
Date of Service December 05, 2019 Assessment & Plan (1) Acute respiratory failure: Mr. Valdez Galvin 59 years old male with past medical history of COPD, DM2, significant 40+ pack year smoking history who presented to the emergency room with severe shortness of breath and dyspnea started Tuesday. - Currently appears to be viral pneumonia with acute COPD exacerbation - CXR showed no acute pulmonary disease and Procal negative, doubt bacterial pneumonia - Positive influenza A in ED and started on Tamiflu 75mg BID for 5 days, appears to be in window starting within 48 hours to benefit from treatment. He thinks he received annual influenza vaccine from [place]. - On admission, was started on Doxycycline 100mg IV BID, Rocephin 2gm IV q24h, Solu-Medrol 40mg q12h - Since doubt bacterial pneumonia will discontinue Rocephin, switch Doxycycline to PO since will continue to treat as Acute COPD. Will discontinue Solu-Medrol since he can tolerate PO and switch to Prednisone 40mg PO. - C/w Xopenex negs scheduled since tachycardic. - C/w Anoro 1 puff qAM - C/w Atrovent neb q6h - Currently on room air Code: Full Code DVT ppx: Heparin started on admission FENGI: Heart healthy Dispo: Med/surg tele since tachycardic (2) Influenza: Started oseltamivir 75 mg twice daily for 5 days (3) COPD (chronic obstructive pulmonary disease): As discussed above (4) Sinus tachycardia: Sinus tachycardia on ECG Notes history of tachycardia and this is reflected will all other prior values recorded in [facility] He notes no definitive etiology for this other than this is from "probably from all the smoking" (5) Diabetes mellitus type 2 in nonobese: A1C here of 9.0, he states this is his baseline. On admission, he was started on Regular Insulin 250 units IV and Novolog SS (6) Sepsis associated hypotension: Resolved Lowest BP recorded 90-93/55-58 now normo tensive s/p 3.5L NSS (7) Acute dehydration: Resolved (8) Hypertension: Hold antihypertensives while patient is hypotensive. Hold lisinopril 5 mg p.o. every morning (9) Hyperlipidemia: Lipid panel looks great with a LDL of 45 and a HDL of 72; continue simvastatin 20 mg p.o. nightly. Admission and Anticipated Discharge Date Admission Date: December 04, 2019 Supervising Physician Co-Signing Physician Notes I personally examined the patient and verified all rose points of history and exam, discussed case, and agree with decision making with Dr Rodriguez. Feeling better than before. Pleased with his progress. Vitals noted, in general he is awake and alert pleasant no distress. HEENT normocephalic atraumatic mucous membranes moist. Breathing shows lungs to be diminished throughout but no rales rhonchi or wheezes good effort. He is sitting up eating with no dyspnea. Neuro shows cranial nerves II through XII be grossly intact gross motor and sensory are intact. COPD exacerbation secondary to influenzaimproving. Continue current treatment, hopefully home tomorrow. Stable for medical. Subjective Mr. Galvin notes feeling improved from yesterday. He notes his breathing has improved. He notes no new complaints, and no acute events were reported overnight. He notes starting smoking at age 16 and that he decided to quit yesterday. Physical Exam Constitutional: WD/WN, vitals as above cooperative and comfortable paces around room Eyes: PERRL, conjunctivae normal, anicteric sclerae ENMT: external ear and nose normal, oropharynx normal Neck: normal visual inspection and trachea midline Respiratory: no respiratory distress Auscultation: + diminished lung sounds (Posteriorly improved at apices) Cardiovascular: Rate/Rhythm: regular rhythm and + tachycardic distant heart sounds Gastrointestinal (Abdomen): Percussion/Palpation: abdomen soft; abdomen nontender, no guarding and abdomen not rigid Musculoskeletal: Head/Neck/Chest: normocephalic and head atraumatic Skin: no rashes, warm and dry Neurologic: moves all extremities and awake Psychiatric: A+Ox3, euthymic affect Results & Data ([facility]) Vital Signs (Past 12 Hours) Vital Signs Temp Pulse Pulse Resp BP Pulse Ox 12/05/19 07:30 123 H 12/05/19 07:15 119 H 18 93 12/05/19 07:04 36.6 C 118 H 20 109/64 92 12/05/19 03:07 37.1 C 125 H 16 104/55 L 91 12/05/19 01:29 118 H 22 93 12/05/19 00:00 113 H 12/04/19 23:03 36.7 C 120 H 22 123/71 92 Resident Activity Tracking Resident Involvement: Resident Care Provided Care Provided: Adult Hospital Medicine
[2019-12-05] MEDS ORDERED: INSULIN GLARGINE SOLOSTAR 100 UNITS/ML 3 ML PEN SC ONE ×2 (12:00→12:15)
[2019-12-05] MEDS ORDERED: COUGH DROP (SUGAR FREE) LOZ 24 LOZ/1 BOX BUCCAL ONE (13:11)
--- NOTE | 2019-12-05 14:47 | Pharmacy Report ---
Pharmacy Glycemic Short Note 2 - Date of Service December 05, 2019 - Glycemic Short BSG Results (Last 24 hours): 12/04/19 12/04/19 12/04/19 14:14 21:06 21:09 Glucose 164 H POC Glucose 415 H* 407 H* 12/05/19 12/05/19 12/05/19 00:39 01:47 01:49 Glucose POC Glucose 430 H* 394 H* 390 H* 12/05/19 12/05/19 12/05/19 03:01 03:54 04:56 Glucose POC Glucose 272 H 230 H 215 H 12/05/19 12/05/19 12/05/19 05:55 06:31 07:01 Glucose 201 H POC Glucose 226 H 213 H 12/05/19 12/05/19 12/05/19 07:53 09:10 10:14 Glucose POC Glucose 207 H 212 H 221 H 12/05/19 12/05/19 12/05/19 11:10 12:02 13:06 Glucose POC Glucose 170 H 202 H 194 H 12/05/19 13:55 Glucose POC Glucose 174 H OUTPATIENT ANTIDIABETIC REGIMEN: * glyburide 5 mg PO BID * metformin 1000 mg PO BID * A1c = 9% ASSESSMENT: * Valdez is a 59 yr T2DM male admitted with acute respiratory failure. He was started on antibiotics and IV steroids for pneumonia and COPD exacerbation. * He was given two doses of solu medrol (last dose was 12/04 ~0200) and will start once daily prednisone on 3/5 AM. * Hyperglycemia likely due to infection and high dose steroids on top of baseline uncontrolled DM. * Glycemic control improving on IV insulin infusion. I anticipate significant improvement over the next few hours as IV solu medrol will be wearing off. * Transition to SQ basal + bolus regimen * Basal dosing based on weight/stress 2 * Novolog based on weight/stress 2 (may need to tighten tomorrow) * Add once daily NPH on 3/5 AM to cover prednisone (~0.4 units/kg) PLAN FOR INPATIENT GLYCEMIC CONTROL: * Hold outpatient oral diabetes medications * Basal insulin * Lantus 15 units with lunch, then per scale at HS: * 0 units for BSG < 140 * 8 units for BSG 140-180 * 15 units for BSG > 180 * Bolus insulin * NovoLog per scale ACHS or Q6hrs while NPO * Goal Range: Low 110 mg/dL - High 140 mg/dL * Correction Factor: 25 mg/dL/unit * Nutritional / Prandial insulin per carb ratio of 1 unit per 9 grams CHO consumed PLAN FOR DISCHARGE: * A1c of 9% is above goal * Discharge plan will depend on if patient is discharged on steroids * per discussion with CDE, pt very hesitant to use insulin due to CDL
[2019-12-05] MEDS ORDERED: DC IV INSULIN INFUSION 1 EA DEVI SCH (18:00)
--- NOTE | 2019-12-05 18:39 | Billing Data ---
Date of Service December 05, 2019 Coding Level of Care Code 00954 Subseq Hosp Care Lvl 3
[2019-12-05] MEDS: SIMVASTATIN 20 MG TAB PO SCH (20:49)
[2019-12-05] MEDS: DOXYCYCLINE HYCLATE 100 MG CAP PO SCH (20:49)
[2019-12-05] MEDS ORDERED: INSULIN GLARGINE SOLOSTAR 100 UNITS/ML 3 ML PEN SC SCH (21:00)
[2019-12-06] MEDS: LEVALBUTEROL HCL 0.63 MG/3 ML NEB NEB SCH ×2 (00:19→07:22)
[2019-12-06] MEDS: IPRATROPIUM BROMIDE NEB SOLN 0.02% 2.5 ML VIAL INH SCH ×2 (00:19→07:22)
[2019-12-06] MEDS: INSULIN ASPART 100 UNITS/ML 3 ML PEN SC SCH ×4 (00:20→12:55)
[2019-12-06] MEDS: NSS + 20MEQ KCL 20 MEQ/1,000 ML BAG IV SCH (01:23)
[2019-12-06] MEDS: OSELTAMIVIR PHOSPHATE 75 MG CAP PO SCH (05:50)
[2019-12-06] MEDS ORDERED: INSULIN GLARGINE SOLOSTAR 100 UNITS/ML 3 ML PEN SC SCH (09:00)
[2019-12-06] MEDS ORDERED: predniSONE 20 MG TAB PO SCH (09:00)
[2019-12-06] MEDS ORDERED: INSULIN HUMAN NPH SC SCH (09:00)
[2019-12-06] MEDS: HEPARIN SOD 5,000 UNIT/0.5 ML VIAL SQ SCH (09:05)
[2019-12-06] MEDS: NICOTINE 14 MG/24 HR PATCH TD SCH (09:12)
[2019-12-06] MEDS: UMECLIDINIUM/VILANTEROL 62.5/25MCG 7 PUFFS/INHALER INH SCH (09:12)
[2019-12-06] MEDS: DOXYCYCLINE HYCLATE 100 MG CAP PO SCH (09:18)
[2019-12-06] MEDS: ASPIRIN 81 MG ECTAB PO SCH (09:18)
--- NOTE | 2019-12-06 10:16 | Discharge Summary ---
Date of Service December 06, 2019 Admission HPI Per Admitting Provider The patient is a 59 years old male with past medical history of COPD who presents to the emergency room with severe shortness of breath, dyspnea started yesterday. The patient states that his symptoms are not relieved nor exacerbated by anything specific. Patient reports feeling very tired. Patient reports having a fever, chills, cough nonproductive, headache and body aches. Patient denies abdominal pain nausea vomiting hematuria hematemesis or syncope. Patient is smoker for many years and smokes half a pack per day. The labs are reviewed: WBC 7.52, hemoglobin 12.3, hematocrit 36.1, platelets 222, PT 10, INR 1, APTT 24.2 sodium 136, potassium 4.4, chloride 104, carbon dioxide 24, anion gap 9, BUN 13, creatinine 1.36, GFR 56.2, glucose 164, lactate 3.5, repeated lactate pending, calcium 9, total bilirubin 0.5, AST 10, ALT 18, alkaline phosphatase 77, troponin 0.015, total protein 6.3, albumin 3.6, globulin 2.7, TSH is 0.376. Patient is positive for influenza A. Influenza B is negative. Chest x-ray show cardiomediastinal silhouette normal. Lungs and pleural spaces clear. Degenerative changes of the thoracic spine. Upper abdomen is normal. No acute cardiopulmonary disease. Decision was made to admit patient to PCU on telemetry for acute respiratory failure, influenza A, and generalized malaise with body aches. Principal Diagnosis Acute COPD Exacerbation; Positive Influenza A Discharge Exam Constitutional WD/WN, vitals as above cooperative and comfortable Eyes PERRL, conjunctivae normal, anicteric sclerae ENMT external ear and nose normal, oropharynx normal Neck normal visual inspection and trachea midline Respiratory normal respiratory effort; no respiratory distress Auscultation: + diminished lung sounds (posterior bases bilaterally); no crac kles, no rales and no wheezes Cardiovascular Rate/Rhythm: regular rate and regular rhythm Gastrointestinal (Abdomen) Percussion/Palpation: abdomen soft; abdomen nontender, no guarding and abdomen not rigid Musculoskeletal Head/Neck/Chest: normocephalic and head atraumatic Skin no rashes, warm and dry Neurologic moves all extremities and awake Psychiatric A+Ox3, euthymic affect Discharge Data Allergies Allergy/AdvReac Type Severity Reaction Status Date / Time No Known Allergies Allergy Unknown Verified 12/04/19 15:27 Consultations 12/04/19 16:42 ED Decision to Admit Stat Hospital Course (1) Acute respiratory failure: Mr. Valdez Galvin 59 years old male with past medical history of COPD, DM2, significant 40+ pack year smoking history who presented to the emergency room with severe shortness of breath and dyspnea started Saturday 12/02. He was found positive for Influenza A and was started on Tamiflu. He will finish the 5 day course at home. He also was treated for Acute COPD exacerbation with Prednisone and Doxycycyline. He will finish a Prednisone course of 40mg x3 days at home for a total of 5 days of Prednisone. He will also finish a total of 5 day course of Doxycycline 100mg BID at home over the next 3.5 days. He notes significant improvement with treatment here and felt better each day. He has been normopoxic on RA for over the past 24+ hours. Detailed Course below: - Currently appears to be viral pneumonia with acute COPD exacerbation - CXR showed no acute pulmonary disease and Procal negative, doubt bacterial pneumonia - Positive influenza A in ED and started on Tamiflu 75mg BID for 5 days, appears to be in window starting within 48 hours to benefit from treatment. He thinks he received annual influenza vaccine from [place]. - On admission, was started on Doxycycline 100mg IV BID, Rocephin 2gm IV q24h, Solu-Medrol 40mg q12h - Since doubt bacterial pneumonia will discontinue Rocephin, switch Doxycycline to PO since will continue to treat as Acute COPD. Will discontinue Solu-Medrol since he can tolerate PO and switch to Prednisone 40mg PO. - C/w Xopenex negs scheduled since tachycardic. - C/w Anoro 1 puff qAM - C/w Atrovent neb q6h - Currently on room air Code: Full Code DVT ppx: Heparin started on admission FENGI: Heart healthy Dispo: Med/surg tele since tachycardic (2) Influenza: Started oseltamivir 75 mg twice daily for 5 days (3) COPD (chronic obstructive pulmonary disease): As discussed above (4) Sinus tachycardia: Sinus tachycardia on ECG Notes history of tachycardia and this is reflected will all other prior values recorded in [facility] He notes no definitive etiology for this other than this is from "probably from all the smoking" Morning of discharge this has resolved with HR WNL. (5) Diabetes mellitus type 2 in nonobese: A1C here of 9.0, he states this is his baseline. On admission, he was started on Regular Insulin 250 units IV and Novolog SS (6) Sepsis associated hypotension: Resolved Lowest BP recorded 90-93/55-58 now normo tensive s/p 3.5L NSS (7) Acute dehydration: Resolved (8) Hypertension: Hold antihypertensives while patient is hypotensive. Hold lisinopril 5 mg p.o. every morning (9) Hyperlipidemia: Lipid panel looks great with a LDL of 45 and a HDL of 72; continue simvastatin 20 mg p.o. nightly. Total Time Total Time Spent Total Time Spent (In Minutes): <30 Total Time Includes: Examination of the Patient, Discharge Planning and Medication Reconciliation Discharge Plan Discharge Items Patient Disposition: Home - Self-Care Reason For Visit: ACUTE RESPIRATORY FAILURE Discharge Diagnosis: Acute COPD Exacerbation; Influenza A Activity: Per Instructions section Non-emergency contact: Primary Care Provider Call non-emergency contact if: you have any medication questions and your symptoms worsen Follow-up/Referrals: Nimesh Levy DO [Primary Care Provider] - 12/11/19 3:00 pm (You will need to arrive at 2:45pm to fill out paperwork prior to your appt.) Diet: Heart Healthy Addtl Attending Provider Instructions: Mr. Galvin, you were admitted and treated for an Acute exacerbation of your COPD. You also tested positive for the flu. You were treated for both with Tamiflu for influenza, Antibiotics, and steroids. You will need to finish the course of treatment at home. You will need to take the following: - Tamiflu (for influenza) 75mg pill. Take one pill, twice a day (AM/PM). You need 3.5 more days of treatment with a total of 7 pills for a 5 day course of treatment. - Doxycycline 100mg pill. Take one pill, twice a day (AM/PM). You need 3.5 more days of treatment with a total of 7 pills for a 5 day course of treatment. Do not take this medication with any diary products/calcium or magnesium supplements within a hour before or after taking this medication as it can prevent absorption. - Prednisone 40mgl. Take two 20mg pills for a total of 40mg daily, once a day for the next 3 days for a course of treatment of 5 total days. Stay well hydrated with clear fluids. Make sure to wash your hands frequently, avoid crowded/public areas until you finish your Tamiflu as you are still contagious and can spread the flu to others. Do not go to work until you finish this treatment as well. Please stop smoking. Please follow up with your primary care provider for hospital follow up to ensure this illness is resolving. Pending Studies at Discharge: No Stand-Alone Forms: [facility], Work/School Release (Inpt), Smoking Cessation Medications and DC Order Prescriptions: New doxycycline hyclate 100 mg Capsule 100 mg PO BID Qty: 7 RF: 0 prednisone 20 mg Tablet 40 mg PO DAILY 3 Days Qty: 6 RF: 0 oseltamivir [Tamiflu] 75 mg Capsule 75 mg PO Q12H Qty: 7 RF: 0 Continued Combivent Respimat 20-100 mcg/actuation Mist 1 puff INHALATION Q6H PRN (Reason: Shortness Of Breath Or Wheezing) RF: 0 glyburide 5 mg Tablet 5 mg PO BID RF: 0 aspirin [Aspir-81] 81 mg Tablet,Delayed Release (Dr/Ec) 81 mg PO QAM RF: 0 lisinopril 5 mg Tablet 5 mg PO QAM RF: 0 simvastatin 20 mg Tablet 20 mg PO HS RF: 0 metformin 1,000 mg Tablet 1,000 mg PO BID RF: 0 albuterol sulfate [ProAir HFA] 90 mcg/actuation Hfa Aerosol Inhaler 2 puff INHALATION DIRECTED PRN (Reason: Shortness Of Breath Or Wheezing) RF: 0 Victoza 2-[place] 0.6 mg/0.1 mL (18 mg/3 mL) Pen Injector 1 dose SUBCUT QAM RF: 0 Stiolto Respimat 2.5-2.5 mcg/actuation Mist 2 puff INHALATION QAM RF: 0 Discharge Orders: Discharge Order (Routine); Ordered 12/06/19 Ordered By: Valdez Hurley/Other Patient Handouts: Diabetes [place] Complications, Diabetes Type 2 Coping, Diabetes Healthy Meals, Diabetes Exercise Benefits, Diabetes Living Life, Diabetes Manage A1C Test Admission Data Admit Date/Time: 12/04/19 17:47 Attending Provider: Hugh Patel Admit Provider: Edilia Kate Primary Care Provider: Nimesh Levy Other Providers: Edilia Kate Other Interventions: Discharge Summary Assessment (RN) Last Done: 12/06/19 12:03 DC Date/Time DO NOT enter until pt leaves facility: 12/06/19 13:23 Supervising Physician Co-Signing Physician Notes I personally examined the patient and verified all rose points of history and exam, discussed case, and agree with decision making with Dr Rodriguez. Feeling better and up to going home. Vitals noted, in general he is awake and alert pleasant no distress. HEENT normocephalic atraumatic mucous membranes moist. Breathing unlabored no accessory muscle use good effort. Neuro shows cranial nerves II through XII be grossly intact. Skin shows no rashes, no pallor, no icterus. COPD exacerbation secondary to influenzaimproving. Stable for home, finish out current course of treatment. Otherwise as above. Resident Activity Tracking Resident Involvement: Resident Care Provided Care Provided: Adult Hospital Medicine
[2019-12-06] MEDS: VICTOZA~ORDER AWAITING ACTION SCH (10:17)
--- NOTE | 2019-12-06 16:50 | Billing Data ---
Date of Service December 06, 2019 Coding Level of Care Code D/C Day Management <30 mins
== END 2019-12-06 13:23 | disposition home or self-care (01) | DRG 871 ==
LOC: ED 12:08 → 2S 17:47 → SUATTDRO 17:47 → 2S 18:10 → 3W 12-05 17:02

== ENCOUNTER 2024-08-14 10:59 | Inpatient (IN) ==
[2024-08-14 11:47] LABS: Basophils # (auto) 0.12 K/uL (0.00-0.20); Basophils % (auto) 0.9 %; Eosinophils # (auto) 0.45 K/uL (0.00-0.50); Eosinophils % (auto) 3.3 %; Hematocrit (blood only) 36.6 % (42.0-52.0); Hemoglobin 11.7 g/dl (14.0-18.0); Immature Granulocytes # (auto) 0.05 K/uL (0.01-0.20); Immature Granulocytes % (auto) 0.4 %; Lymphocytes # (auto) 1.41 K/uL (1.20-3.40); Lymphocytes % (auto) 10.2 %; Mean Corpuscular Hemoglobin 26.7 pg (25.0-34.0); Mean Corpuscular Volume 83.6 fL (80.0-100.0); Mean Platelet Volume 8.8 fL (9.4-12.4); Monocytes # (auto) 1.33 K/uL (0.11-0.59); Monocytes % (auto) 9.6 %; Neutrophils # (auto) 10.43 K/uL (1.40-6.50); Neutrophils % (auto) 75.6 %; Platelet Count 373 K/uL (130-400); RDW Coefficient of Variation 15.7 % (11.5-14.5); RDW Standard Deviation 47.7 fL (36.4-46.3); Red Blood Count 4.38 M/uL (4.70-6.10); White Blood Count 13.79 K/ul (4.8-10.8)
[2024-08-14 12:04] LABS: Albumin Globulin Ratio 1.8 (0.9-2); Albumin Level 4.4 gm/dl (3.4-5.0); BUN Creatinine Ratio 14.3 (10-20); Bilirubin,Total 0.7 mg/dl (0.2-1.0); Calcium 9.5 mg/dl (8.6-10.3); Creatinine Clr Calc Pharmacy 75.7 ml/min; Globulin 2.4 gm/dl (2.5-4.0); Potassium 3.8 mmol/L (3.5-5.1); Total Protein 6.8 gm/dl (6.0-8.3)
--- NOTE | 2024-08-14 12:34 | XRay Report ---
XR chest 1V portable CLINICAL HISTORY: Dyspnea COMPARISON STUDY: Chest radiograph and chest CT July 14, 2024. FINDINGS: Lung volumes are normal. Lungs are clear. There is no pneumothorax or pleural effusion. Car diac size is normal. Mediastinal contours are normal. There is no evidence for pulmonary edema. IMPRESSION: No acute cardiopulmonary findings. ACT 112: Negative or not required by law. Electronically signed by: Jin Bowling M.D. 08/14/2024 12:32 PM
[2024-08-14] MEDS: ALBUT/IPRATROP 3MG/0.5MG NEB 3 ML VIAL NEB STA (12:52)
[2024-08-14] MEDS: methylPREDNISolone 125 MG/2 ML VIAL IV STA (13:27)
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
[2024-08-14 14:06] LABS: Adenovirus PCR Not Detected (NotDetected); Bordetella parapertussis PCR Not Detected (NotDetected); Bordetella pertussis PCR Not Detected (NotDetected); Chlamydia pneumoniae PCR Not Detected (NotDetected); Coronavirus 229E PCR Not Detected (NotDetected); Coronavirus CoV-2 (COVID19)PCR Not Detected (NotDetected); Coronavirus HKU1 PCR Not Detected (NotDetected); Coronavirus NL63 PCR Not Detected (NotDetected); Coronavirus OC43PCR Not Detected (NotDetected); Human Metapneumovirus PCR Not Detected (NotDetected); Influenza A PCR Not Detected (NotDetected); Influenza B PCR Not Detected (NotDetected); Mycoplasma pneumoniae PCR Not Detected (NotDetected); Parainfluenza Virus 1 PCR Not Detected (NotDetected); Parainfluenza Virus 2 PCR Not Detected (NotDetected); Parainfluenza Virus 3 PCR Not Detected (NotDetected); Parainfluenza Virus 4 PCR Not Detected (NotDetected); Respiratory Syncytial VirusPCR Not Detected (NotDetected); Rhinovirus/Enterovirus PCR Not Detected (NotDetected)
[2024-08-14] MEDS: OPTIRAY 320 125ml IV ONE (14:27)
[2024-08-14] MEDS: ALBUTEROL 0.5% NEB SOLN 2.5 MG/0.5 ML VIAL NEB STA (14:51)
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
[2024-08-14] MEDS: cefTRIAXone SODIUM 2,000 MG/50 ML BAG IV STA (15:57)
[2024-08-14] MEDS: DOXYCYCLINE HYCLATE 100 MG CAP PO STA (15:57)
--- NOTE | 2024-08-14 16:11 | History & Physical Report ---
Date of Service August 14, 2024 Assessment & Plan (1) Acute bronchiolitis due to other infectious organisms: Plan: In setting of acute on chronic COPD with continued tobacco use - Place in observation to med tele - Carb consistent diet - VS per unit protocol - Continue ceftriaxone 2g IV daily and Doxycycline 100mg po BID - Add Mucinex 600mg BID - Could also consider adding mucomyst - PRN supplemental O2 via nasal cannula with goal pulse ox 88-92% - Nebs as below (2) COPD with acute exacerbation: Plan: Acute on chronic - Hold inhalers - Defer further duoneb/albuterol in setting of tachycardia - Place on Xopenex/Atrovent QIDR - Start Budesonide and Formoterol neb treatments BID - Continue methylprednisolone 40mg IV q8h - Mucolytics as noted above - Pt counseled on importance of tobacco cessation, declines nicotine patch (3) Lesion of right [place] kidney: Plan: Suspicious on CTA chest for renal cell CA - Patient will require f/u MRI with renal protocol - Consideration for IR consult for bx (4) Sinus tachycardia: Plan: Acute on chronic - Likely driven by stimulation of beta-1 receptors by use of albuterol - No further albuterol and change Xopenex/Atrovent QID routine - Monitor on tele, ensure HR normalizes back to low 100s which appears to be his baseline - CTA chest performed and negative for PE Plan Chronic medical problems: 1. HLD - continue atorvastatin 2. DMT2 - takes Lantus 6 units daily in AM (continue, do not split dose), added accuchecks ac and hs with novolog coverage with CF 135 and CR 44. hold metformin and ozempic Lovenox started for DVT ppx. AM labs orered. Above plan of care has been d/w Dr. Dunne who will also see and evaluate this patient. Further orders will be implemented as warranted by attending. History of Present Illness Chief Complaint: Dyspnea Primary Care Provider: Antoni Pizarro MD Valdez is a 63 yo M with a pmhx of COPD who continues to smoke, DMT2, HTN, HLD, and sinus tachycardia who presents to the ER today c/o dyspnea, worse over the past 24 hours. He reports that he started feeling poorly yesterday, increased dyspnea with occasional nonproductive cough, and chest tightness. He denies chest pain, fever, chills, sore throat, rhinorrhea or ear pain. He continues to smoke but notes that he has not smoked much over the past 24 hours. He does not have a nebulizer at home. His ER w/u today notes a mildly elevated wbc count of 13.79 with neutrophil predominance. Remaining labs are essentially unremarkable. Respiratory biofire was negative. His sats have been in the low 90s. His CXR was negative but he underwent CTA chest to r/o PE which was negative for PE but demonstrated bronchitis with mucous plugging and multifocal bibasilar predominant infectious or inflammatory bronchiolitis. He was medicated with 2 neb treatments, one Duoneb and one Albuterol. He also received Ceftriaxone, Doxycycline, and a dose of Methylprednisolone 125mg. Following treatment, his heart rate remained in the 130s sustained and he was subsequently referred for observation to the hospital medicine service. Patient is currently awake and comfortable. Saturating in the low 90s on room air. Denies complaints. Allergies Allergy/AdvReac Type Severity Reaction Status Date / Time nicotine Allergy Unknown Rash Verified 06/22/24 13:49 exenatide [From [place]] AdvReac Intermediate Vomiting Verified 06/22/24 13:49 Home Medications Medication Instructions Recorded Confirmed Type albuterol sulfate 90 mcg/actuation 2 puff inhalation UD PRN Shortness 07/12/18 08/14/24 History aerosol inhaler (ProAir HFA) Of Breath Or Wheezing aspirin 81 mg tablet,delayed 81 mg PO QAM 07/12/18 08/14/24 History release (Aspir-) metformin 1,000 mg tablet 1,000 mg PO BID 07/12/18 08/14/24 History tiotropium 2.5 mcg-olodaterol 2.5 2 puff inhalation QAM 07/12/18 08/14/24 History mcg/actuation mist for inhalation (Stiolto Respimat) blood sugar diagnostic (OneTouch #10 ea 12/28/19 06/22/24 History Ultra Blue Test Strip) lancets (OneTouch UltraSoft #50 ea 12/28/19 06/22/24 History Lancets) pen needle, diabetic 32 gauge x #50 ea 12/28/19 06/22/24 History 1/4" (BD Ultra-Fine Micro Pen Needle) atorvastatin 20 mg tablet 20 mg PO HS 07/06/22 08/14/24 History cholecalciferol (vitamin D3) 100 100 mcg PO QAM 07/06/22 08/14/24 History mcg (4,000 unit) capsule mometasone 200 mcg/actuation HFA 2 puff inhalation BID 07/06/22 08/14/24 History aerosol inhaler (Asmanex HFA) semaglutide 2 mg/dose (8 mg/3 mL) 2 mg subcut UD 07/06/22 08/14/24 History subcutaneous pen injector (Ozempic) insulin glargine 100 unit/mL (3 0 unit subcut QAM 08/19/23 08/14/24 History mL) subcutaneous pen cyanocobalamin (vitamin B-12) 500 500 mcg PO HS 12/15/23 08/14/24 History mcg tablet (Vitamin B-12) insulin aspart U-100 100 unit/mL 0 unit subcut TIDM 12/15/23 08/14/24 History (3 mL) subcutaneous pen (Novolog FlexPen U-100 Insulin aspart) Past Med/Surg History Problem List (Updated 08/14/24 @ 16:25 by Meron Alexis PA-C) Lesion of right [place] kidney Acute bronchiolitis due to other infectious organisms COPD with acute exacerbation Bilateral renal masses Family history of colon cancer Anemia Encounter for pre-operative examination Sinus tachycardia Sepsis associated hypotension Acute respiratory failure Elevated lactic acid level (Acute) SOB (shortness of breath) (Acute) Acute dehydration (Acute) Influenza (Acute) Respiratory failure with hypoxia (Acute) Hypertension Hyperlipidemia Diabetes mellitus type 2 in nonobese COPD (chronic obstructive pulmonary disease) 08/19/23- currently using rescue inhaler multiple times daily controlled w/ use of inhalers--- smokes less than 1 pack per day and vape without nicotine Medical History Diabetes 1.5, managed as type 2 SOBOE (shortness of breath on exertion) Hyperlipidemia Hypertension COPD (chronic obstructive pulmonary disease) 08/19/23- currently using rescue inhaler multiple times daily controlled w/ use of inhalers--- smokes less than 1 pack per day and vape without nicotine Surgical History History of cholecystectomy Hx of colonoscopy Family History Other No pertinent family history in first degree relatives Social History Smoking Status: Current every day smoker Tobacco Type: Cigarettes Cigarettes Per Day: 5-10 cigarettes, vapes without nicotine- advised on policy; Second Hand Exposure: Yes (hx as child); Do You Dip or Chew Tobacco: No; Hx Alcohol Use: Yes Alcohol type: beer Hx Substance Use: No Preferred Language: Burmese Communication Ability: Effective Supervisor Decorating Required: No Beliefs That Will Affect Care: None Current Living Situation: Spouse and Family Feels Safe at Home: Yes Assistive Devices: Denture - Upper, Denture - Lower and Glasses Review of Systems 2 Review of Systems: All systems reviewed and are unremarkable except as noted in HPI and below. Denies fever, chills, fatigue, headache, nasal congestion, sore throat, chest pain, palpitations, orthopnea, PND, abdominal pain, n/v/d, constipation, dysuria, hematuria, frequency, back pain, joint pain or swelling, easy bruising or bleeding, skin lesions or rashes. Physical Exam 2 Physical Exam: GENERAL: 63 yo thin WM who appears older than stated age. No distress. EYES: EOMI. PERRLA. Anicteric. HENT: Moist mucous membranes. No scleral icterus. No cervical lymphadenopathy. LUNGS: Mildly labored. Poor air exchange. No wheezes or rhonchi appreciated. CARDIOVASCULAR: Tachycardic ABDOMEN: Soft, non-tender and non-distended. No palpable masses. Bs normoactive x 4 quad. EXTREMITIES: No edema. Non-tender. Peripheral pulses +2/4. NEUROLOGIC: A&O x3. No focal neurological deficits. CN II-XII grossly intact. PSYCHIATRIC: Cooperative. Appropriate mood and affect. SKIN: Warm, dry, intact. No rashes or lesions. Results & Data Results & Data Vital Signs (Past 12 Hours) Vital Signs Temp Pulse Pulse Resp BP BP Pulse Ox 08/14/24 15:51 124 H 08/14/24 15:21 132 H 24 140/77 92 08/14/24 14:57 94 08/14/24 13:00 121 H 22 128/79 94 08/14/24 11:55 123 H 08/14/24 11:45 120 H 20 123/80 95 08/14/24 11:08 36.9 C 125 H 22 109/73 93 O2 Del Method O2 Flow Rate 08/14/24 15:51 08/14/24 15:21 Room Air 08/14/24 14:57 Room Air 0 08/14/24 13:00 Room Air 08/14/24 11:55 08/14/24 11:45 Room Air 08/14/24 11:08 Room Air Laboratory Results 08/14/24 11:22 08/14/24 11:22 Diagnostic Findings Chest X-Ray 08/14/24 11:11 XR chest 1V portable CLINICAL HISTORY: Dyspnea COMPARISON STUDY: Chest radiograph and chest CT July 14, 2024. FINDINGS: Lung volumes are normal. Lungs are clear. There is no pneumothorax or pleural effusion. Cardiac size is normal. Mediastinal contours are normal. There is no evidence for pulmonary edema. IMPRESSION: No acute cardiopulmonary findings. ACT 112: Negative or not required by law. Electronically signed by: Jin Bowling M.D. 08/14/2024 12:32 PM Chest CTA 08/14/24 13:53 CT angio chest PE protocol CT DOSE: 769.76 mGy.cm HISTORY: 63 years-old Male with recent trauma, PE, PNA. Acute shortness of breath TECHNIQUE: Multiple CTA images of the chest were obtained after the intravenous administration of 112 ml Optiray. Coronal and sagittal MIPS were obtained from the axial data set and were submitted for review. All measurements were obtained according to NASCET criteria. A dose lowering technique was utilized adhering to the principles of ALARA. COMPARISON: Chest radiograph of same day, chest CT 07/14/2024 FINDINGS: CTA: Heart is normal in size. No pericardial effusion. Mild coronary artery calcifications. Mild fusiform dilation of the ascending thoracic aorta, 4.3 x 4.3 cm. Patency of the imaged great vessels. The opacified pulmonary arterial tree is unremarkable with suboptimal visualization of the segmental and subsegmental branches. No definite pulmonary emboli identified. CT CHEST: Subcentimeter left thyroid calcification. No pathologically enlarged lymph nodes. Resolution of the previously described retrosternal hemorrhage. There is no pneumothorax, pleural effusion or overt pulmonary edema. Bronchial wall thickening with mucous plugging and bibasilar predominant tree-in-bud nodules with mild subsegmental subpleural consolidation. Healing nondisplaced fractures of the anterior left first condyle junction and left third through sixth ribs. Suspicious lesion of the superior pole right kidney redemonstrated measuring approximately 2.5 cm. Mild bilateral perinephric stranding. IMPRESSION: 1. No pulmonary emboli identified. 2. Bronchitis with mucous plugging and multifocal bibasilar predominant infectious or inflammatory bronchiolitis. 3. Healing subacute nondisplaced anterior left-sided rib fractures. No pneumothorax. 4. Unchanged fusiform dilation of the ascending thoracic aorta without dissection. 5. Ill-defined lesion of the superior pole right kidney redemonstrated suspicious for renal cell carcinoma. ACT 112: Negative or not required by law. The above report was generated using voice recognition software. It may contain grammatical, syntax or spelling errors. Electronically signed by: Lenny Yuan M.D. 08/14/2024 2:51 PM ECG Additional Comments: Sinus tachycardia with RBBB Code Status & VTE Plan Code Status Full code upon d/w patient Supervising Physician Co-Signing Physician Notes Patient seen and examined, chart reviewed, case discussed with Meron Alexis PA-C and I agree with the assessment and plan as above except as otherwise noted Labs and images reviewed 63-year-old male with history of sinus tachycardia, COPD presented with acute COPD exacerbation. Does have persistent tachycardia following nebulized albuterol treatment. Evaluation is multifocal bibasilar bronchiolitis and mucous plugging. Treated with Rocephin/Doxy on admission. Given steroids for acute on chronic COPD on admission. Breathing improving however remains tachycardic post nebulizer. No chest pain or chest pressure. Sinus. No hypoxia. Bio fire is negative. Agree with treatment for bronchiolitis with acute COPD exacerbation as above, can likely transition to cefpodoxime/Doxy versus Levaquin as outpatient. Continue steroid taper. Suspect sinus tachycardia is reactive, will switch to Xopenex and treat conservatively on admission. Agree with above. PG Care Time/CCT Total # of Minutes Spent Total Time Spent with Patient: Total time spent is greater than 50% in coordination of care (as documented) at patient's floor/unit and/or counseling patient: 77 minutes Coding Level of Care Code 56308 INT INP/OBS CARE 3/75MIN Diagnoses Acute bronchiolitis due to other infectious organisms J21.8 COPD with acute exacerbation J44.1 Lesion of right [place] kidney N28.9 Sinus tachycardia R00.0
[2024-08-14] MEDS ORDERED: ONDANSETRON INJ 2 MG/ML 2 ML VIAL IV PRN (19:44)
[2024-08-14] MEDS ORDERED: DEXTROSE 50% 50 ML SYRINGE IV PRN (19:44)
[2024-08-14] MEDS ORDERED: CARBOHYDRATES FOR HYPOGLYCEMIA PO PRN (19:44)
[2024-08-14] MEDS ORDERED: MAGNESIUM HYDROXIDE SUSP 30 ML UDC PO PRN (19:44)
[2024-08-14] MEDS ORDERED: methylPREDNISolone 125 MG/2 ML VIAL IV SCH (19:44)
[2024-08-14] MEDS ORDERED: ALUMINUM/MAGNESIUM SUSP 30 ML UDC PO PRN (19:44)
[2024-08-14] MEDS ORDERED: GLUCOSE 10 TAB/TUBE PO PRN (19:44)
[2024-08-14] MEDS ORDERED: GLUCAGON FOR INJ 1 MG VIAL SQ PRN (19:44)
[2024-08-14] MEDS ORDERED: ACETAMINOPHEN 325 MG TAB PO PRN (19:44)
[2024-08-14] MEDS ORDERED: GLUCOSE 40% GEL 15 GM TUBE PO PRN (19:44)
[2024-08-14] MEDS: BUDESONIDE 0.5 MG/2 ML VIAL (PULMICORT) NEB SCH (21:03)
[2024-08-14] MEDS: FORMOTEROL 20 MCG/2 ML VIAL NEB SCH (21:03)
[2024-08-14] MEDS: LEVALBUTEROL 1.25 MG/3 ML NEB NEB SCH (21:05)
[2024-08-14] MEDS: IPRATROPIUM BROMIDE NEB SOLN 0.02% 0.5MG/2.5ML VIAL NEB SCH (21:06)
[2024-08-14] MEDS: methylPREDNISolone 40 MG in SYRINGE 0 ML IV SCH (21:17)
[2024-08-14] MEDS: INSULIN ASPART PER UNIT CHARGE SC SCH (21:17)
[2024-08-14] MEDS: guaiFENesin 600 MG TABCR PO SCH (22:55)
[2024-08-14] MEDS: DOXYCYCLINE HYCLATE 100 MG CAP PO SCH (22:55)
[2024-08-14] MEDS: ATORVASTATIN 20 MG TAB PO SCH (22:55)
[2024-08-15 06:01] LABS: Basophils # (auto) 0.03 K/uL (0.00-0.20); Basophils % (auto) 0.2 %; Hematocrit (blood only) 34.6 % (42.0-52.0); Hemoglobin 11.3 g/dl (14.0-18.0); Immature Granulocytes # (auto) 0.04 K/uL (0.01-0.20); Immature Granulocytes % (auto) 0.3 %; Lymphocytes # (auto) 0.73 K/uL (1.20-3.40); Lymphocytes % (auto) 5.3 %; Mean Corpuscular Hemoglobin 26.5 pg (25.0-34.0); Mean Corpuscular Hgb Conc 32.7 g/dL (32.0-36.0); Mean Corpuscular Volume 81.2 fL (80.0-100.0); Monocytes % (auto) 4.3 %; Neutrophils % (auto) 89.9 %; Platelet Count 346 K/uL (130-400); RDW Coefficient of Variation 15.6 % (11.5-14.5); RDW Standard Deviation 46.2 fL (36.4-46.3); Red Blood Count 4.26 M/uL (4.70-6.10)
[2024-08-15 06:43] LABS: Albumin Globulin Ratio 1.7 (0.9-2); Albumin Level 4.1 gm/dl (3.4-5.0); BUN Creatinine Ratio 22.1 (10-20); Bilirubin,Total 0.8 mg/dl (0.2-1.0); Calcium 9.6 mg/dl (8.6-10.3); Creatinine Clr Calc Pharmacy 76.4 ml/min; Globulin 2.4 gm/dl (2.5-4.0); Magnesium 1.3 mg/dl (1.7-2.4); Potassium 4.6 mmol/L (3.5-5.1); Total Protein 6.5 gm/dl (6.0-8.3)
[2024-08-15 07:04] LABS: Estimated Average Glucose 186 mg/dl; Hemoglobin A1C 8.1 % (4.5-5.6)
[2024-08-15] MEDS: LANTUS PER UNIT CHARGE SQ SCH (09:13)
[2024-08-15] MEDS: cefTRIAXone SODIUM 2,000 MG/50 ML BAG IV SCH (09:31)
[2024-08-15] MEDS: ENOXAPARIN INJ 40 MG/0.4 ML SYR SQ SCH (10:35)
[2024-08-15] MEDS: ASPIRIN 81 MG ECTAB PO SCH (10:36)
[2024-08-15] MEDS: LANTUS PER UNIT CHARGE SC ONE (12:03)
--- NOTE | 2024-08-15 21:15 | Hospitalist Progress Note ---
Date of Service August 15, 2024 Assessment & Plan (1) Acute bronchiolitis due to other infectious organisms: Plan: In setting of acute on chronic COPD with continued tobacco use - admit as patient is now on oxygen. - Carb consistent diet - VS per unit protocol - Continue ceftriaxone 2g IV daily and Doxycycline 100mg po BID - Add Mucinex 600mg BID - Could also consider adding mucomyst - PRN supplemental O2 via nasal cannula with goal pulse ox 88-92% - Nebs as below (2) COPD with acute exacerbation: Plan: Acute on chronic - Hold inhalers - Defer further duoneb/albuterol in setting of tachycardia - Place on Xopenex/Atrovent QIDR - Start Budesonide and Formoterol neb treatments BID - Continue methylprednisolone 40mg IV q8h - Mucolytics as noted above - Pt counseled on importance of tobacco cessation, declines nicotine patch -remains tach on 08/15 (3) Lesion of right [place] kidney: Plan: Suspicious on CTA chest for renal cell CA - Patient will require f/u MRI with renal protocol - Consideration for IR consult for bx (4) Sinus tachycardia: Plan: Acute on chronic - Likely driven by stimulation of beta-1 receptors by use of albuterol - No further albuterol and change Xopenex/Atrovent QID routine - Monitor on tele, ensure HR normalizes back to low 100s which appears to be his baseline - CTA chest performed and negative for PE Plan Chronic medical problems: 1. HLD - continue atorvastatin 2. DMT2 - takes Lantus 6 units daily in AM (continue, do not split dose), added accuchecks ac and hs with novolog coverage with CF 135 and CR 44. hold metformin and ozempic Lovenox started for DVT ppx. AM labs orered. Above plan of care has been d/w Dr. Dunne who will also see and evaluate this patient. Further orders will be implemented as warranted by attending. Admission and Anticipated Discharge Date Admission Date: August 14, 2024 Subjective Patient reports feeling better. Not quite at baseline. Review of Systems Review of Systems: All systems reviewed & are unremarkable except as noted in HPI & below Physical Exam Physical Exam: GENERAL: 63 yo thin WM.No distress. EYES: EOMI. PERRLA. Anicteric. HENT: Moist mucous membranes. No scleral icterus. No cervical lymphadenopathy. LUNGS: No wheezes or rhonchi appreciated. CARDIOVASCULAR: Tachycardic ABDOMEN: Soft, non-tender and non-distended. No palpable masses. Bs normoactive x 4 quad. EXTREMITIES: No edema. Non-tender. Peripheral pulses +2/4. NEUROLOGIC: A&O x3. No focal neurological deficits. CN II-XII grossly intact. PSYCHIATRIC: Cooperative. Appropriate mood and affect. SKIN: Warm, dry, intact. No rashes or lesions. Results & Data Results & Data Vital Signs (Past 12 Hours) Vital Signs Temp Pulse Resp BP Pulse Ox O2 Del Method O2 Flow Rate 08/15/24 19:55 37.0 C 106 H 20 135/74 95 Nasal Cannula 2 08/15/24 19:31 100 H 18 96 Nasal Cannula 2 08/15/24 15:01 36.9 C 113 H 18 122/73 91 Nasal Cannula 2 08/15/24 13:40 108 H 15 94 Nasal Cannula 2 08/15/24 11:22 36.8 C 108 H 18 116/68 94 Room Air PG Care Time/CCT Total # of Minutes Spent Total Time Spent with Patient: Total time spent is greater than 50% in coordination of care (as documented) at patient's floor/unit and/or counseling patient: Coding Level of Care Code 21465 SUB INP/OBS CARE 2/35MIN Diagnoses Acute bronchiolitis due to other infectious organisms J21.8 COPD with acute exacerbation J44.1 Lesion of right [place] kidney N28.9 Sinus tachycardia R00.0
[2024-08-15] MEDS: LANTUS PER UNIT CHARGE SC SCH (21:18)
[2024-08-16 06:16] LABS: Hematocrit (blood only) 35.7 % (42.0-52.0); Hemoglobin 11.8 g/dl (14.0-18.0); Mean Corpuscular Hgb Conc 33.1 g/dL (32.0-36.0); Mean Corpuscular Volume 81.7 fL (80.0-100.0); Platelet Count 402 K/uL (130-400); RDW Coefficient of Variation 15.8 % (11.5-14.5); RDW Standard Deviation 46.8 fL (36.4-46.3); Red Blood Count 4.37 M/uL (4.70-6.10); White Blood Count 14.41 K/ul (4.8-10.8)
[2024-08-16 06:37] LABS: BUN Creatinine Ratio 24.6 (10-20); C Reactive Protein 5.9 mg/dl (0-0.5); Calcium 9.4 mg/dl (8.6-10.3); Creatinine Clr Calc Pharmacy 65.2 ml/min; Potassium 4.4 mmol/L (3.5-5.1)
[2024-08-16 11:27] VITALS: O2SAT 94
[2024-08-16 13:11] VITALS: BP 123/78; PULSE 96; RESP 16; TEMP 98.4
--- NOTE | 2024-08-16 16:13 | Electrocardiogram Report ---
Test Reason : Blood Pressure : */* mmHG Vent. Rate : 127 BPM Atrial Rate : 127 BPM P-R Int : 158 ms QRS Dur : 138 ms QT Int : 342 ms P-R-T Axes : 61 87 62 degrees QTcB Int : 497 ms Sinus tachycardia Right bundle branch block Abnormal ECG When compared with ECG of 14-Jul-2024 16:04, No significant change was found Confirmed by Willam Curtis ([id number]) on 08/16/2024 4:13:36 PM Referred By: REFERRED SELF Confirmed By: Willam Curtis
[2024-08-17] MEDS ORDERED: LANTUS PER UNIT CHARGE SQ SCH (09:00)
== END 2024-08-16 15:33 | disposition home or self-care (01) | DRG 202 ==
LOC: EDINP 10:59 → ED 10:59 → SUATTDRO 16:01 → 2N 19:44